=== PATIENT | male | born 1970 | race Caucasian/White ===

== ENCOUNTER → 2019-02-28 | Day surgery (SDC) | payer OTHER ==
[~2019-02-28] MED LIST: BACITRACIN 50,000 UNIT VIAL ONE; BUPIVACAINE 0.25% 30ML SDV INJ ONE; BUPIVACAINE HCL 0.5% INJ 30 ML VIAL INJ ONE; CEFAZOLIN SOD 1 GM/NS 50ML 100 ML IV ONE; DEXAMETHASONE SOD PHOS INJ 4 MG/ML VIAL ONE; FENTANYL CITRATE/PF 100MCG/2 ML INJ ONE; IBUPROFEN 800MG/ 250ML 250 ML IV ONE; KETOROLAC TROMETHAMINE 30 MG/ML VIAL ONE; LIDOCAINE HCL 2% LOCAL INJ 5 ML SDV VIAL INJ ONE; LOSARTAN-HCTZ1 EAC1; MIDAZOLAM HCL 2 MG/2 ML VIAL ONE; ONDANSETRON HCL INJ 2MG/ML 2ML 2 MG/ML VIAL ONE; PROPOFOL IV EMULSION 10 MG/ML 20 ML VIAL ONE; SEVOFLURANE INHAL SOLN 250 ML PEN BTL ONE
[2019-02-28 12:05] VITALS: BP 107/71
--- NOTE | 2019-03-01 15:57 | Operative Report ---
DATE OF PROCEDURE: 02/28/2019 SURGEON: Liu Villatoro MD PREOPERATIVE DIAGNOSIS: Left lower extremity maisonneuve injury. POSTOPERATIVE DIAGNOSIS: Left lower extremity maisonneuve injury. PROCEDURE PERFORMED: 1. The patient underwent a closed reduction of the left ankle mortise. 2. Screw stabilization of the left ankle syndesmosis. LINE PRODUCER: FRANCO Herr. ANESTHESIA: General endotracheal intubation anesthesia. IV FLUIDS: Per anesthesia record. BRIEF DESCRIPTION OF THE PATIENT'S OPERATIVE PROCEDURE: Mr. Rowe was taken to the operating room, placed in supine position on the operating table. Following induction of general anesthesia as well as endotracheal intubation, the patient's left lower extremity was examined under anesthesia. He was found to have bruising and ecchymosis about his ankle joint. His ankle was swollen. Fluoroscopic evaluation of the ankle joint demonstrated widening of the medial clear space as well as the syndesmosis. Proximally, the patient had a minimally displaced fracture of the shaft of the fibula. The patient's lower extremity was prepped and draped in standard surgical fashion. The case was begun by reducing the patient's ankle mortise. A tenaculum was then used to hold the ankle in its reduced position. Reduction of the ankle mortise was confirmed using fluoroscopy. Incision was then created over the lateral aspect of the ankle joint. This incision was carried through the skin only. Blunt dissection was used to deepen the incision to the level of the fibula. Two screws were then inserted from lateral to medial the syndesmosis region of the ankle joint providing compression stabilization of the syndesmosis. The position of the screws as well as reduction of ankle was then assessed using fluoroscopy and found to be appropriate. The ankle mortise was found to be reduced. This wound was copiously irrigated and closed in a multilayer fashion. Sterile dressings were applied as well as a well-padded three-sided splint. The patient was then awakened and taken to postanesthesia care in stable condition. Shira Zamorano acted as cutting table operator first for this case and was necessary for the prepping and draping the patient as well as retraction of soft tissues and positioning of the leg to allow this case to be successful. MD REBECCA Fontenot/BELINDA /[id number]
== END | disposition home or self-care (01) ==
LOC: OR 08:28
PROVIDERS: ATTEND Specialist
DX: S82.492A Other fracture of shaft of left fibula, initial encounter for closed fracture (principal); S93.422A Sprain of deltoid ligament of left ankle, initial encounter; S93.432A Sprain of tibiofibular ligament of left ankle, initial encounter; I10 Essential (primary) hypertension; Z88.5 Allergy status to narcotic agent; Z01.810 Encounter for preprocedural cardiovascular examination; Z82.49 Family history of ischemic heart disease and other diseases of the circulatory system
CPT/HCPCS: 27829; 76000; 93005; J0690; J1100; J1885; J2001; J2250; J2405; J2704; J3010

== ENCOUNTER 2019-06-21 16:56 | Outpatient (RCR) | payer OTHER ==
[~2019-06-21 16:56] MED LIST changes: -BACITRACIN 50,000 UNIT VIAL ONE; -BUPIVACAINE 0.25% 30ML SDV INJ ONE; -BUPIVACAINE HCL 0.5% INJ 30 ML VIAL INJ ONE; -CEFAZOLIN SOD 1 GM/NS 50ML 100 ML IV ONE; -DEXAMETHASONE SOD PHOS INJ 4 MG/ML VIAL ONE; -IBUPROFEN 800MG/ 250ML 250 ML IV ONE; -KETOROLAC TROMETHAMINE 30 MG/ML VIAL ONE; -LIDOCAINE HCL 2% LOCAL INJ 5 ML SDV VIAL INJ ONE; -ONDANSETRON HCL INJ 2MG/ML 2ML 2 MG/ML VIAL ONE; -PROPOFOL IV EMULSION 10 MG/ML 20 ML VIAL ONE; -SEVOFLURANE INHAL SOLN 250 ML PEN BTL ONE; +ZYRTEC10 M3 PO
== END 2019-06-23 ==
LOC: PT 16:56
PROVIDERS: ATTEND Specialist
DX: M25.572 Pain in left ankle and joints of left foot (principal); M25.672 Stiffness of left ankle, not elsewhere classified; M25.472 Effusion, left ankle; M62.81 Muscle weakness (generalized); R26.9 Unspecified abnormalities of gait and mobility
CPT/HCPCS: 97110 ×9; 97140; 97161; J2250; J3010

== ENCOUNTER 2019-07-04 16:18 | Outpatient (RCR) | payer OTHER ==
[~2019-07-04 16:18] MED LIST changes: -FENTANYL CITRATE/PF 100MCG/2 ML INJ ONE; -MIDAZOLAM HCL 2 MG/2 ML VIAL ONE
== END 2019-07-24 ==
LOC: PT 16:18
PROVIDERS: ATTEND Specialist
DX: M25.472 Effusion, left ankle (principal); M25.572 Pain in left ankle and joints of left foot; M25.672 Stiffness of left ankle, not elsewhere classified; M62.81 Muscle weakness (generalized); R26.9 Unspecified abnormalities of gait and mobility
CPT/HCPCS: 97139